=== PATIENT | female | born 1990 | race Caucasian/White ===

== ENCOUNTER 2022-06-19 08:24 | Emergency (ER) | payer OTHER ==
[2022-06-19 09:15] LABS: RED BLOOD COUNT 4.11 M/UL (4.00-5.10); WHITE BLOOD COUNT 9.9 K/UL (4.5-11.0)
[2022-06-19 10:03] LABS: BUN/CREATININE RATIO 17 (0-10)
[2022-06-20] MEDS ORDERED: ZOFRAN ODT 4 MG4 MG GT (14:34)
== END 2022-06-19 15:20 | disposition home or self-care (01) ==
LOC: ER1 08:24
PROVIDERS: Physician Assistant
DX: R10.9 Unspecified abdominal pain (principal); F10.10 Alcohol abuse, uncomplicated; R10.816 Epigastric abdominal tenderness
CPT/HCPCS: 71045; 80053; 81001; 83690; 84703; 85025; 96374; 99284; C9113; Q9967

== ENCOUNTER 2022-06-20 12:39 | Emergency (ER) | payer OTHER ==
[2022-06-20 13:41] LABS: HEMOGLOBIN 13.6 gm/dl (12.3-15.3); RED BLOOD COUNT 3.73 M/UL (4.00-5.10); WHITE BLOOD COUNT 7.6 K/UL (4.5-11.0)
[2022-06-20 13:52] LABS: BUN/CREATININE RATIO 21 (0-10)
[2022-06-20] MEDS ORDERED: ZOFRAN ODT 4 MG4 MG GT (14:34)
== END 2022-06-20 15:13 | disposition home or self-care (01) ==
LOC: ER1 12:39
PROVIDERS: Family Medicine
DX: T78.40XA Allergy, unspecified, initial encounter (principal); R11.0 Nausea; Z20.822 Contact with and (suspected) exposure to COVID-19
CPT/HCPCS: 71045; 80053; 81001; 83605; 83690; 84703; 85025; 96361; 96374; 99284; J2405; U0002